=== PATIENT | male | born 1970 | race Two or more races ===

== ENCOUNTER 2017-02-25 11:01 | Inpatient (IN) | payer MEDICAID ==
[~2017-02-25] VITALS: Ht 177.8 cm; Wt 109.3 kg
--- NOTE | 2017-02-25 11:05 | NUR ---
BIBRA C/O CHEST PAIN STARTING LAST NIGHT AND THIS MORNING. PATIENT GIVEN NITRO AND ASPIRIN ON ROUTE WITH RELIEF. PATIENT DENIES ANY CHEST PAIN AT THIS MOMENT. BREATHING EVEN AND UNLABORED. NO SOB. SKIN WARM AND DRY. VITALS STABLE. SAFETY AND COMFORT MEASURES IN PLACE. AWAITING MD ORDERS.
--- NOTE | 2017-02-25 11:23 | NUR ---
CAN WASHER AT BEDSIDE
[2017-02-25 11:27] LABS: BASOPHILS % (AUTO) 0.5 % (0.0-2.0); EOSINOPHILS # (AUTO) 0.2 /CMM (0.0-0.7); EOSINOPHILS % (AUTO) 2.9 % (0.0-6.0); HEMATOCRIT 46 % (39-51); HEMOGLOBIN 15.5 g/dL (13.5-17.5); LYMPHOCYTES # (AUTO) 1.2 /CMM (0.8-4.8); LYMPHOCYTES % (AUTO) 17.7 % (20.0-44.0); MEAN CORPUSCULAR HEMOGLOBIN 29 PG (26.0-33.0); MEAN CORPUSCULAR HGB CONC 34 g/dl (31.0-36.0); MEAN CORPUSCULAR VOLUME 86 fL (80-96); MONOCYTES # (AUTO) 0.3 /CMM (0.1-1.30); NEUTROPHILS # (AUTO) 4.8 /CMM (1.8-8.9); NEUTROPHILS % (AUTO) 73.9 % (43.0-81.0); PLATELET COUNT (AUTO) 185 /CMM (150-450); RDW COEFFICIENT OF VARIATION 12.7 (11.5-15.0); WHITE BLOOD COUNT (AUTO) 6.5 K/uL (4.3-11.0)
[2017-02-25 11:36] LABS: CREATININE 1.5 mg/dL (0.6-1.3); POTASSIUM 3.8 mmol/L (3.5-5.1)
[2017-02-25 11:39] LABS: INR 1.21 (0.87-1.13); PROTHROMBIN TIME 12.6 SECS (9.5-12.7)
[2017-02-25 11:41] LABS: ALBUMIN 4.3 g/dL (3.4-5.0); BILIRUBIN,TOTAL 0.7 mg/dL (0.2-1.0); TOTAL PROTEIN, SERUM 7.2 g/dL (6.4-8.2)
--- NOTE | 2017-02-25 11:52 | NUR ---
UPDATED BED 321-1 ROHAN NURSE
--- NOTE | 2017-02-25 11:58 | NUR ---
REPORT GIVEN TO JENNIFER VALLES FOR WARD UPON ADMISSION.
--- NOTE | 2017-02-25 11:59 | NUR ---
CALLED [facility], SHANK TAPER WAS PAGED.
[2017-02-25] MEDS ORDERED: MORPHINE SULFATE INJ 2 MG/ML DISP.SYRIN IV PRN (12:30)
[2017-02-25] MEDS: METOPROLOL TARTRATE 25 MG TABLET PO SCH ×2 (12:30→17:00)
[2017-02-25] MEDS ORDERED: NITROGLYCERIN 0.4 MG/TAB BOTTLE SL PRN (12:30)
[2017-02-25] MEDS ORDERED: ONDANSETRON HCL/PF 4 MG/2 ML VIAL IVP PRN (12:30)
--- NOTE | 2017-02-25 12:40 | NUR ---
PATIENT TRANSPORTED TO [facility] VIA ACLS PROTOCOL FOR ADMISSION. RNJENNIFER TO PROVIDE WARD.
[2017-02-25 13:00] VITALS: BP 92/55
--- NOTE | 2017-02-25 13:00 | NUR ---
MS RN ADMITTED A46 YEAR OLD MALE,CAME IN W/ CC OF CHEST PAIN, AWAKE,ALERT,ORIENTED X4,NOT IN ANY FORM OF DISTRESS, RESPIRATIONS EVEN AND UNLABORED, NOT IN ANY FORM OF DISTRESS,DENIES PAIN AT THIS TIME, AFIB CONTROLLED ON MONITOR, DENEIS PAIN AT THIS TIME,ALL NEEDS ATTENDED.
[2017-02-25] MEDS ORDERED: PANT40TA2 PO (13:35)
[2017-02-25] MEDS ORDERED: BENA20TA2 PO (13:35)
[2017-02-25] MEDS ORDERED: OMEG1CAP PO (13:35)
[2017-02-25] MEDS ORDERED: RIVA10TA PO (13:35)
[2017-02-25] MEDS ORDERED: METF500T4 PO (13:35)
[2017-02-25] MEDS ORDERED: TERA5CAP4 PO (13:35)
[2017-02-25] MEDS ORDERED: FURO-144 PO (13:35)
[2017-02-25] MEDS ORDERED: ATOR40TA PO (13:35)
[2017-02-25] MEDS ORDERED: GLIP5TAB26 PO (13:35)
[2017-02-25] MEDS ORDERED: METO25TA20 PO (13:35)
[2017-02-25 16:00] VITALS: BP 99/68
--- NOTE | 2017-02-25 17:00 | NUR ---
MS RN DUE MEDS GIVEN,TOLERATED WELL.
[2017-02-25] MEDS: CLOPIDOGREL BISULFATE 75 MG TABLET PO SCH (17:35)
[2017-02-25] MEDS ORDERED: RIVAROXABAN 10 MG TABLET PO SCH (18:00)
[2017-02-25] MEDS ORDERED: TERAZOSIN HCL 5 MG CAPSULE PO SCH (18:00)
[2017-02-25] MEDS ORDERED: ATORVASTATIN 40 MG TABLET PO SCH (18:00)
[2017-02-25] MEDS: BENAZEPRIL HCL 20 MG TABLET PO SCH (18:00)
[2017-02-25] MEDS: GLIPIZIDE XL 5 MG TAB.OSM.24 PO SCH (18:52)
[2017-02-25] MEDS: PANTOPRAZOLE 40 MG TABLET.DR PO SCH (18:52)
[2017-02-25] MEDS: FUROSEMIDE 40 MG TABLET PO SCH (18:52)
[2017-02-25] MEDS: METFORMIN 500 MG TABLET PO SCH (18:52)
--- NOTE | 2017-02-25 19:00 | NUR ---
RN NOTES IN BED RESTING COMFORTABLY. A/O X 4, PT IN STABLE CONDITION, NO S/S OF DISTRESS. SAFETY MEASURES ARE IN PLACE, CALL LIGHT IS IN REACH. WILL CONTINUE TO MONITOR.
[2017-02-25 20:00] VITALS: BP 107/73
[2017-02-26] VITALS: BP 94/55
[2017-02-26] MEDS ORDERED: DIPHENOXYLATE HCL/ATROP SULF 1 UDTAB TABLET ONE (02:55)
--- NOTE | 2017-02-26 02:56 | NUR ---
Paged dr. rahul malhotra and relayed that the patient is requesting of anti diarrhea medication according to the patient he is having diarrhea since AM but he just defecate this PM shift around 0230 am with liquid brown consistency with no blood and no foul odor per dr.sam nielsen to give lomotil 1 udtab x 1 dose only read back, noted and carried out
[2017-02-26] MEDS ORDERED: DIPHENOXYLATE HCL/ATROP SULF 1 UDTAB TABLET PO PRN (03:00)
[2017-02-26 04:00] VITALS: BP 114/79
--- NOTE | 2017-02-26 06:26 | NUR ---
FRAME FIXER CLOSING NOTES PT IN BED ASLEEP AND EASILY AWAKEN, HOB ELEVATED RESPIRATIONS EVEN AND UNLABORED. 98% R.A IN STABLE CONDITION. NOT IN S/S DISTRESS. KEPT CLEAN AND DRY AND COMFORTABLE, ALL NURSING CARE RENDERED. NEEDS ATTENDED AND ANTICIPATED, FREQUENT VISUAL CHECK DONE FOR SAFETY EVERY 2 HOURS. ON LOW BED AT ALL TIMES TO ENSURE SAFETY. SAFE HAZARD FREE ENVIRONMENT PROVIDED. CALL LIGHT WITHIN EASY TO REACH. WILL ENDORSE NEXT SHIFT CONTINUITY OF CARE. ATTACH TO TELE MONITOR. PT JUST HAD 1 LIQUID MODERATE AMOUNT OF BOWEL MOVEMENT DURING MY SHIFT.
[2017-02-26] MEDS: PANTOPRAZOLE 40 MG TABLET.DR PO SCH (07:30)
--- NOTE | 2017-02-26 07:30 | NUR ---
FLOOR INSTALLER NOTES PATIENT ALERT AND ORIENTED X4, BREATHING EVEN AND UNLABORED, NO DISTRESS NOTED, DENIES PAIN OR DISCOMFORT AT THIS TIME, DISCUSSED PLAN OF CARE FOR TODAY, PATIENT VERBALIZED UNDERSTANDING. NEEDS ATTENDED AND MET, CALL LIGHT WITHIN REACH, WILL CONTINUE TO MONITOR.
[2017-02-26 07:55] LABS: BASOPHILS % (AUTO) 0.5 % (0.0-2.0); EOSINOPHILS # (AUTO) 0.3 /CMM (0.0-0.7); HEMATOCRIT 45 % (39-51); HEMOGLOBIN 15.1 g/dL (13.5-17.5); LYMPHOCYTES # (AUTO) 1.9 /CMM (0.8-4.8); MEAN CORPUSCULAR HEMOGLOBIN 30 PG (26.0-33.0); MEAN CORPUSCULAR HGB CONC 34 g/dl (31.0-36.0); MEAN CORPUSCULAR VOLUME 88 fL (80-96); MONOCYTES # (AUTO) 0.5 /CMM (0.1-1.30); MONOCYTES % (AUTO) 8.5 % (2.0-12.0); NEUTROPHILS # (AUTO) 3.6 /CMM (1.8-8.9); PLATELET COUNT (AUTO) 153 /CMM (150-450); RDW COEFFICIENT OF VARIATION 13.7 (11.5-15.0); RED BLOOD CELL COUNT(AUTO) 5.11 MIL/uL (4.5-6.0); WHITE BLOOD COUNT (AUTO) 6.3 K/uL (4.3-11.0)
[2017-02-26 08:00] VITALS: BP 108/77
[2017-02-26] MEDS ORDERED: REGADENOSON 0.4 MG/5 ML DISP.SYRIN IVP ONE (08:00)
[2017-02-26 08:11] LABS: CALCIUM, SERUM 8.5 mg/dL (8.5-10.1); CREATININE 1.3 mg/dL (0.6-1.3); MAGNESIUM 1.5 mg/dL (1.8-2.4); PHOSPHORUS 2.6 mg/dL (2.5-4.9); POTASSIUM 3.9 mmol/L (3.5-5.1)
[2017-02-26] MEDS ORDERED: METOPROLOL TARTRATE 25 MG TABLET PO SCH (09:00)
--- NOTE | 2017-02-26 09:00 | NUR ---
RN MS NOTES PATIENT KEPT NPO, BROUGHT DOWN FOR LEXISCAN PROCEDURE.
[2017-02-26] MEDS: METFORMIN 500 MG TABLET PO SCH (10:19)
[2017-02-26] MEDS: GLIPIZIDE XL 5 MG TAB.OSM.24 PO SCH (10:19)
[2017-02-26] MEDS: CLOPIDOGREL BISULFATE 75 MG TABLET PO SCH (10:19)
[2017-02-26] MEDS: FUROSEMIDE 40 MG TABLET PO SCH (10:19)
[2017-02-26] MEDS: BENAZEPRIL HCL 20 MG TABLET PO SCH (10:20)
[2017-02-26 10:23] LABS: THYROID STIMULATING HORMONE 2.671 uIU/mL (0.358-3.74)
[2017-02-26] MEDS: Magnesium 1GM/D5W 100ML PREMIX 100 ML IV SCH ×2 (11:25→12:37)
--- NOTE | 2017-02-26 12:38 | NUR ---
NM CARDIAC STRESS TEST WAS COMPLETED. TECH:RB.
--- NOTE | 2017-02-26 14:45 | NUR ---
RN MS NOTES DR. AMAYA AWARE OF LEXISCAN RESULT. PER MD, PATIENT IS CLEARED FOR DISCHARGE.
[2017-02-26 16:00] VITALS: BP 112/77
--- NOTE | 2017-02-26 16:55 | NUR ---
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 LUIS. PATIENT ALERT AND ORIENTED X4, NO DISTRESS NOTED, DENIES ANY CHEST PAIN OR DISCOMFORT, RECEIVED DISCHARGE INSTRUCTIONS AND VERBALIZED UNDERSTANDING. DISCHARGE PAPERWORKS SIGNED. SKIN ASSESSMENT COMPLETED, SKIN DRY AND INTACT. PIV REMOVED, SECURED WITH GAUZE AND TAPE. BELONGINGS RECONCILED AND COMPLETE. PATIENT ONLY REPORTED 1 LOOSE BM WITH BROWN SEDIMENTS, NO FOUL ODOR. DENIES ABDOMINAL PAIN OR NAUSEA. PATIENT LEFT THE FACILITY IN NO DISTRESS, PICKED UP BY .
[2017-02-27] MEDS ORDERED: glipiZIDE XL 2.5 MG TAB.OSM.24 PO SCH (09:00)
== END 2017-02-26 16:55 | disposition home or self-care (01) | DRG 203 ==
LOC: ER 11:03 → TELE 11:54 → MED 02-26 08:25
PROVIDERS: ADMIT Internal Medicine; ATTEND Internal Medicine
DX: M94.0 Chondrocostal junction syndrome [Tietze] (principal); N17.0 Acute kidney failure with tubular necrosis; I50.9 Heart failure, unspecified; I11.0 Hypertensive heart disease with heart failure; D68.59 Other primary thrombophilia; Z95.1 Presence of aortocoronary bypass graft; Z79.899 Other long term (current) drug therapy; Z79.01 Long term (current) use of anticoagulants; I48.91 Unspecified atrial fibrillation; I25.10 Atherosclerotic heart disease of native coronary artery without angina pectoris; E11.9 Type 2 diabetes mellitus without complications; Z79.84 Long term (current) use of oral hypoglycemic drugs
CPT/HCPCS: 36415; 71010-TC; 80048-TC; 80053-TC; 80061-TC; 83735-TC; 84100-TC; 84439-TC; 84443-TC; 84484-TC; 85025-TC; 85730-TC; 87081-TC; 93307-TC; A9502; J2785; J3475